=== PATIENT | male | born 1955 | race American Indian/Alaskan Native ===

== ENCOUNTER 2021-08-14 20:04 | Emergency (ER) | payer BC, OTHER ==
[2021-08-14 20:34] VITALS: BP 131/82
--- NOTE | 2021-08-14 21:11 | Emergency Department Report ---
- General Chief complaint: Skin/Abscess/Foreign Body Stated complaint: PAINFUL ABSCESS ON BACK Time Seen by Provider: 08/14/21 21:03 Source: patient Mode of arrival: Ambulatory Limitations: No Limitations - History of Present Illness Initial comments: 2-3 year history of lump to back that has become painful over the past 2 days. No fever , chills, sweats, nausea, discharge, trauma or manipulation of area of concern. Denies immunocompromise history too. Location: back Severity: mild, moderate Quality: dull Consistency: constant Improves with: none Worsens with: palpation Context: none Associated symptoms: denies other symptoms Treatments Prior to Arrival: none - Related Data Home Medications Medication Instructions Recorded Confirmed Last Taken Bimatoprost [Lumigan 0.01%] 1 drop OP QPM 03/09/14 03/09/14 03/08/14 Dorzolamide/Timolol/Pf [Cosopt Pf 1 drop OP BID 03/09/14 03/09/14 03/09/14 Eye Drops 22.3/6.8 mg/ml] Previous Rx's Medication Instructions Recorded Last Taken Type Sulfamethoxazole/Trimethoprim 1 each PO BID #14 tablet 03/09/14 Unknown Rx [Bactrim Ds] Ketorolac [Toradol] 10 mg PO Q6H PRN #15 tablet 08/14/21 Unknown Rx Sulfamethoxazole/Trimethoprim 1 each PO BID #20 tablet 08/14/21 Unknown Rx [Bactrim Ds] cephALEXin [Keflex] 500 mg PO Q6HR #40 capsule 08/14/21 Unknown Rx Allergies Allergy/AdvReac Type Severity Reaction Status Date / Time No Known Allergies Allergy Verified 03/09/14 07:47 Abscess Boil HPI - HPI Chief Complaint: Skin/Abscess/Foreign Body Stated Complaint: PAINFUL ABSCESS ON BACK Time Seen by Provider: 08/14/21 21:03 Home Medications: Home Medications Medication Instructions Recorded Confirmed Last Taken Bimatoprost [Lumigan 0.01%] 1 drop OP QPM 03/09/14 03/09/14 03/08/14 Dorzolamide/Timolol/Pf [Cosopt Pf 1 drop OP BID 03/09/14 03/09/14 03/09/14 Eye Drops 22.3/6.8 mg/ml] Previous Rx's Medication Instructions Recorded Last Taken Type Sulfamethoxazole/Trimethoprim 1 each PO BID #14 tablet 03/09/14 Unknown Rx [Bactrim Ds] Ketorolac [Toradol] 10 mg PO Q6H PRN #15 tablet 08/14/21 Unknown Rx Sulfamethoxazole/Trimethoprim 1 each PO BID #20 tablet 08/14/21 Unknown Rx [Bactrim Ds] cephALEXin [Keflex] 500 mg PO Q6HR #40 capsule 08/14/21 Unknown Rx Allergies/Adverse Reactions: Allergies Allergy/AdvReac Type Severity Reaction Status Date / Time No Known Allergies Allergy Verified 03/09/14 07:47 ED Review of Systems ROS: Stated complaint: PAINFUL ABSCESS ON BACK Other details as noted in HPI Comment: All other systems reviewed and negative ED Past Medical Hx - Past Medical History Previous Medical History?: Yes Additional medical history: Glaucoma - Surgical History Past Surgical History?: No - Social History Smoking Status: Never Smoker Substance Use Type: None - Medications Home Medications: Home Medications Medication Instructions Recorded Confirmed Last Taken Type Bimatoprost [Lumigan 0.01%] 1 drop OP QPM 03/09/14 03/09/14 03/08/14 History Dorzolamide/Timolol/Pf [Cosopt Pf 1 drop OP BID 03/09/14 03/09/14 03/09/14 History Eye Drops 22.3/6.8 mg/ml] Sulfamethoxazole/Trimethoprim 1 each PO BID #14 tablet 03/09/14 Unknown Rx [Bactrim Ds] Ketorolac [Toradol] 10 mg PO Q6H PRN #15 tablet 08/14/21 Unknown Rx Sulfamethoxazole/Trimethoprim 1 each PO BID #20 tablet 08/14/21 Unknown Rx [Bactrim Ds] cephALEXin [Keflex] 500 mg PO Q6HR #40 capsule 08/14/21 Unknown Rx ED Physical Exam - General Limitations: No Limitations General appearance: alert, in no apparent distress - Head Head exam: Present: atraumatic, normocephalic - Eye Eye exam: Present: normal appearance - ENT ENT exam: Present: mucous membranes moist - Neck Neck exam: Present: normal inspection - Respiratory Respiratory exam: Present: normal lung sounds bilaterally. Absent: respiratory distress - Cardiovascular Cardiovascular Exam: Present: regular rate, normal rhythm. Absent: systolic murmur, diastolic murmur, rubs, gallop - GI/Abdominal GI/Abdominal exam: Present: soft, normal bowel sounds - Rectal Rectal exam: Present: deferred - Extremities Exam Extremities exam: Present: normal inspection - Back Exam Back exam: Present: normal inspection - Neurological Exam Neurological exam: Present: alert, oriented X3 - Psychiatric Psychiatric exam: Present: normal affect, normal mood - Skin Skin exam: Present: warm, dry, intact, other (right upper back in scapula area has inclusion cyst region with mild redness. no flucutuance noted. no discharge on palaption. no crepitus). Absent: rash ED Course Vital Signs 08/14/21 20:29 Temperature 99.1 F Pulse Rate 84 Respiratory 18 Rate Blood Pressure 131/82 O2 Sat by Pulse 95 Oximetry Critical care attestation.: If time is entered above; I have spent that time in minutes in the direct care of this critically ill patient, excluding procedure time. ED Disposition Condition: Stable Prescriptions: Sulfamethoxazole/Trimethoprim [Bactrim Ds] 1 each PO BID #20 tablet cephALEXin [Keflex] 500 mg PO Q6HR #40 capsule Ketorolac [Toradol] 10 mg PO Q6H PRN #15 tablet PRN Reason: Pain
== END 2021-08-14 22:19 | disposition home or self-care (01) ==
LOC: ED 20:04
DX: L02.212 Cutaneous abscess of back [any part, except buttock and flank] (principal); Z79.899 Other long term (current) drug therapy
CPT/HCPCS: 99281